=== PATIENT | female | born 1990 | race Caucasian/White ===

== ENCOUNTER 2024-10-12 02:50 | Emergency (ER) | payer OTHER, SELFPAY ==
[2024-10-12 03:10] VITALS: BP 102/68
[2024-10-12 04:00] VITALS: BP 103/70
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
[2024-10-12 05:00] VITALS: BP 98/58
[2024-10-12 06:00] VITALS: BP 113/63
== END 2024-10-12 07:51 ==
LOC: EMR 02:50
PROVIDERS: EMERGENCY PHYSICIAN Emergency Medicine
DX: T76.21XA Adult sexual abuse, suspected, initial encounter (principal); X58.XXXA Exposure to other specified factors, initial encounter; R45.851 Suicidal ideations
CPT/HCPCS: 99283